=== PATIENT | female | born 1965 | race American Indian/Alaskan Native ===

== ENCOUNTER 2021-08-19 07:32 | Outpatient (CLI) | payer OTHER ==
--- NOTE | 2021-08-19 08:54 | Vascular Lab Report ---
. DUPLEX DOPPLER LOWER EXTREMITY ARTERIAL, LEFT INDICATION: I73.9 PVD,UNSPECIFIED SOB. TECHNIQUE: Arterial duplex examination of the left lower extremity was performed using B-mode, color flow and sp ectral Doppler assessment. FINDINGS: LEFT: Common Femoral Artery: PSV 125 cm/sec. Triphasic waveform. Proximal SFA: PSV 124 cm/sec. Triphasic waveform. Mid SFA: PSV 105 cm/sec. Triphasic waveform. Distal SFA: PSV 80 cm/sec. Triphasic waveform. Popliteal artery: PSV 63 cm/sec. Triphasic waveform. Posterior tibial artery: PSV 38 cm/sec. Biphasic waveform. Dorsalis Pedis Artery: PSV 38 cm/sec. Biphasic waveform. IMPRESSION: 1. Multiphasic waveforms as outlined above. Signer Name: Champ Kitchen MD Signed: 08/19/2021 8:50 AM Workstation Name: [id number]
== END 2021-08-19 07:33 | disposition home or self-care (01) ==
LOC: VAS 07:32
PROVIDERS: ATTEND Internal Medicine
DX: I73.9 Peripheral vascular disease, unspecified (principal); R06.02 Shortness of breath